=== PATIENT | male | born 1995 | race Caucasian/White ===

== ENCOUNTER 2020-09-05 21:14 | Inpatient (IN) ==
[2020-09-05] MEDS ORDERED: *HR* OxyCODONE/APAP 5/325 TABLET PO ONE (22:11)
[2020-09-05] MEDS ORDERED: *HR* FentaNYL (PF) 100 MCG/2 ML VIAL IVP ONE (22:18)
[2020-09-05] MEDS ORDERED: 0.9 % Sodium Chloride 1,000 ML IVC ONE (22:18)
[2020-09-05 22:39] LABS: Basophils # 0.1 K/mcL (0.0-0.2); Basophils % 0.6 %; Eosinophils # 0.1 K/mcL (0.0-0.6); Eosinophils % 0.9 %; Hematocrit 42.1 % (37.5-50.1); Immature Granulocytes % 0.4 % (0-4); Lymphocytes # 4.7 K/mcL (0.6-4.6); Lymphocytes % 33.1 %; Mean Corpuscular HGB Conc 33.3 g/dL (31.6-35.5); Mean Corpuscular Hemoglobin 28.3 pg (28.0-33.3); Mean Corpuscular Volume 85.2 fL (83.0-100.0); Mean Platelet Volume 8.9 fL (9.4-12.4); Monocytes # 1.1 K/mcL (0.0-1.3); Monocytes % 7.4 %; Neutrophils # 8.2 K/mcL (1.6-8.9); Platelet Count 311 K/mcL (140-400); Red Blood Count 4.94 M/mcL (4.19-5.50); Red Cell Distribution Width 12.9 % (11.5-14.5); Segmented Neutrophils % 57.6 %; White Blood Count 14.3 K/mcL (4.3-11.1)
[2020-09-05 22:53] LABS: Reactive Lymphocytes Present (Not Present); Smudge Cells Present (Not Present)
[2020-09-05 23:00] LABS: BUN/Creatinine Ratio 11 (6-26); Blood Urea Nitrogen 10 mg/dL (6-20); Calcium 9.1 mg/dL (8.6-10.3); Carbon Dioxide 27 mEq/L (23-29); Chloride 103 mEq/L (98-107); Creatine Kinase 91 Units/L (30-223); Glucose 95 mg/dL (70-105); Osmolality,Calculated 285 (280-300); Potassium 3.6 mEq/L (3.5-5.1); Sodium 138 mEq/L (136-145); eGFR For African Americans > 60 (> 60); eGFR For Non-African Americans > 60 (> 60)
[2020-09-05] MEDS ORDERED: *HR* HYDROmorphone (PF) 1 MG/ML SYRINGE IVP ONE (23:04)
[2020-09-05] MEDS ORDERED: *HR* Rivaroxaban 10 MG TABLET PO STA (23:31)
[2020-09-06] MEDS ORDERED: *HR* HYDROmorphone (PF) 1 MG/ML SYRINGE IVP ONE ×2 (00:27→01:50)
[2020-09-06] MEDS: 0.9 % Sodium Chloride 1,000 ML IVC SCH ×3 (01:03→17:59)
[2020-09-06] MEDS ORDERED: Naloxone 0.4 MG/ML INJ IVP PRN (01:50)
[2020-09-06] MEDS ORDERED: Ondansetron 4 MG/2 ML VIAL IVP PRN (01:50)
[2020-09-06] MEDS ORDERED: Melatonin 3 MG TABLET PO PRN (01:50)
[2020-09-06] MEDS: Gabapentin 100 MG CAPSULE PO SCH ×4 (02:10→21:12)
[2020-09-06] MEDS ORDERED: Nicotine 21 MG PATCH.TD24 TD SCH (02:30)
[2020-09-06] MEDS: *HR* Rivaroxaban 10 MG TABLET PO SCH (04:46)
[2020-09-06] MEDS: Ketorolac 15 MG/ML VIAL IVP PRN ×3 (04:47→18:06)
[2020-09-06] MEDS ORDERED: Isovue-370 500 ML BOTTLE IVP ONE (12:16)
[2020-09-06] MEDS ORDERED: Nicotine 21 MG PATCH.TD24 TD ONE (16:25)
[2020-09-06] MEDS: Acetaminophen IV 1,000 MG/100 ML BAG IVPB SCH ×2 (17:46→23:53)
[2020-09-07] MEDS: 0.9 % Sodium Chloride 1,000 ML IVC SCH (00:53)
[2020-09-07 01:44] LABS: Basophils # 0.1 K/mcL (0.0-0.2); Basophils % 1.2 %; Eosinophils # 0.3 K/mcL (0.0-0.6); Eosinophils % 4.5 %; Hematocrit 40.5 % (37.5-50.1); Hemoglobin 13.4 g/dL (12.9-16.9); Immature Granulocytes % 0.1 % (0-4); Lymphocytes # 3.2 K/mcL (0.6-4.6); Lymphocytes % 44.5 %; Mean Corpuscular HGB Conc 33.1 g/dL (31.6-35.5); Mean Corpuscular Hemoglobin 28.5 pg (28.0-33.3); Mean Corpuscular Volume 86.2 fL (83.0-100.0); Monocytes # 0.6 K/mcL (0.0-1.3); Monocytes % 8.2 %; Platelet Count 278 K/mcL (140-400); Red Cell Distribution Width 13.1 % (11.5-14.5); Segmented Neutrophils % 41.5 %; White Blood Count 7.3 K/mcL (4.3-11.1)
[2020-09-07 02:05] LABS: BUN/Creatinine Ratio 14 (6-26); Blood Urea Nitrogen 13 mg/dL (6-20); Calcium 8.5 mg/dL (8.6-10.3); Carbon Dioxide 26 mEq/L (23-29); Chloride 104 mEq/L (98-107); Glucose 120 mg/dL (70-105); Osmolality,Calculated 287 (280-300); Potassium 3.8 mEq/L (3.5-5.1); Sodium 138 mEq/L (136-145); eGFR For African Americans > 60 (> 60); eGFR For Non-African Americans > 60 (> 60)
[2020-09-07] MEDS: *HR* Rivaroxaban 10 MG TABLET PO SCH (06:08)
[2020-09-07] MEDS: Acetaminophen IV 1,000 MG/100 ML BAG IVPB SCH ×2 (06:08→12:15)
[2020-09-07] MEDS: Gabapentin 100 MG CAPSULE PO SCH ×2 (09:20→14:37)
[2020-09-07] MEDS ORDERED: Nicotine 21 MG PATCH.TD24 TD SCH ×2 (09:45→17:00)
[2020-09-07] MEDS ORDERED: 0.9 % Sodium Chloride 1,000 ML ONE (13:02)
[2020-09-07] MEDS: Ketorolac 15 MG/ML VIAL IVP PRN (13:08)
[2020-09-07 14:46] VITALS: BP 110/70
== END 2020-09-07 18:16 | disposition home or self-care (01) | DRG 861 ==
LOC: CDU 21:14 → EMEROOARM 21:14 → SUATTDRO 09-06 01:03 → CDU 09-06 01:40 → 3NENU 09-06 17:31
PROVIDERS: ADMIT Internal Medicine; ATTEND Student in an Organized Health Care Education/Training Program